=== PATIENT | male | born 1965 | race Caucasian/White ===

== ENCOUNTER 2024-04-29 08:41 | Observation (INO) ==
--- NOTE | 2024-03-24 13:44 | PAT Medication Instructions ---
Medication Instructions Date of Service March 24, 2024 Home Medications ibuprofen 200 mg tablet 400 mg PO BID meloxicam 7.5 mg tablet 7.5 mg PO QAM vit [id number]-[id number]-[id number] 500 mg-50 mg-25 mg-40 mg tablet (Bioflex) 2 tab PO HS ASK your surgeon for instructions ibuprofen 200 mg tablet 400 mg PO BID meloxicam 7.5 mg tablet 7.5 mg PO QAM STOP taking 2 weeks before surgery (or as soon as possible if surgery is within 2 weeks) vit A-ywbthwg-xveluipeo-rutin-[id number] 500 mg-50 mg-25 mg-40 mg tablet (Bioflex) 2 tab PO HS Other Notes NOTHING TO EAT OR DRINK AFTER MIDNIGHT If you have any questions please call us at [phone] or [phone] or [phone] or [phone]
--- NOTE | 2024-04-01 09:10 | Anesthesiology Consultation ---
Date of Service April 01, 2024 Assessment & Plan (1) Encounter for pre-operative examination: - Infectious disease screening: Per assessment on 04/01/24: No known recent infectious disease contacts or current infectious disease symptoms. - Outpatient joint assessment: Pt currently scheduled for inpatient pathway. If surgeon requests review for outpatient joint pathway, patient is an acceptable candidate for outpatient joint program from anesthesia standpoint pending surgeon's office assessment that patient is motivated, has good support and completes [facility] preop requirements. Chart Review Chart Review: Acceptable Risk for Surgery and Patient seen in Pre Admission Testing Teaching & Discussion Pre-Anesthesia Teaching/Discussion Notes: Instructed NPO after midnight before surgery,except medications with 15 cc of water. Medication instructions provided according to the PAT guidelines. History Surgery Operation Date: 04/29/24 07:15 Proposed Procedures p Left Total Knee Arthroplasty - Jorden Lizama MD Height/Weight Height: 6 ft Weight: 105 kg Allergies Allergy/AdvReac Type Severity Reaction Status Date / Time No Known Allergies Allergy Verified 03/23/24 11:47 Medications Home Medications Medication Instructions Recorded Confirmed Last Taken ibuprofen 200 mg tablet 400 mg PO BID 03/23/24 03/23/24 Unknown meloxicam 7.5 mg tablet 7.5 mg PO QAM 03/23/24 03/23/24 Unknown vit 2 tab PO HS 03/23/24 03/23/24 Unknown K-ttyygeg-[id number]-[id number] 500 mg-50 mg-25 mg-40 mg tablet (Bioflex) Past Medical History Medical History History of COVID-2020- mild symptoms > resolved Osteoarthritis Exercise / Class Metabolic Activity II 4-5 Yardwork/Stairs/Walk up hill (one FS: No CP, no SOB) Past Family History Family History Other No family history of adverse response to anesthesia Past Surgical History Surgical History History of arthroscopy of left knee History of arthroscopy of right knee History of left inguinal hernia repair History of right inguinal hernia repair History of tooth extraction History of umbilical hernia repair Past Anesthesia History No Hx of Anesthesia Complications and No Family Hx of Anesthesia Complications History of PONV No Hx of PONV Social History Smoking Status: Current some day smoker tobacco type: cigars Smoking cigarettes per day: Smokes cigars daily (advised on policy) Do You Dip or Chew Tobacco: No Hx Alcohol Use: No Hx Substance Use: No substance use type: does not use Review of Systems Patient denies chest pain, shortness of breath, dyspnea on exertion, fever, chills, cough, wheezing, palpitations. Physical Exam Vital Signs BP 158/83 P 63 TEMP 97.7 SP02 99%RA RESP 16 Physical Full cervical extension range of motion. Full TMJ range of motion. TMD > 3.5 finger breaths Mallampati Score I Dentition: intact, + caps Lungs: clear throughout to auscultation Cardiac: regular rate and rhythm, no murmurs noted Spine: normal Carotid arteries: negative bruit Extremities: no LE edema Trimmed cuevas Lab Results Anesthesia Preop Results Results Anesthesia Widget: WBC 7.07 K/ul (4.8-10.8) 04/01/24 Hgb 15.8 g/dl (14.0-18.0) 04/01/24 Hct 46.6 % (42.0-52.0) 04/01/24 Plt 192 K/uL (130-400) 04/01/24 Na 137 mmol/L (136-145) 04/01/24 K 5.0 mmol/L (3.5-5.1) 04/01/24 Cl 103 mmol/L (98-107) 04/01/24 CO2 28 mmol/L (21-32) 04/01/24 BUN 18 mg/dl (6-23) 04/01/24 Creat 1.11 mg/dl (0.6-1.4) 04/01/24 Glucose Level 102 mg/dl (70-99(Fasting)) H 04/01/24 PT 10.3 Seconds (9.0-12.0) 04/01/24 PTT 27 Seconds (21-31) 04/01/24 INR 0.9 (0.9-1.1) 04/01/24 Urine Color Yellow 04/01/24 Urine Appearance Clear (Clear) 04/01/24 Urine pH 5.5 (4.5-7.5) 04/01/24 Urine Specific [place] 1.007 (1.000-1.030) 04/01/24 Urine Protein Negative (Negative) 04/01/24 Urine Glucose (UA) Negative (Negative) 04/01/24 Urine Ketones Negative (Negative) 04/01/24 Urine Blood Negative (Negative) 04/01/24 Urine Nitrite Negative (Negative) 04/01/24 Urine Bilirubin Negative (Negative) 04/01/24 Urine Urobilinogen Negative (Negative) 04/01/24 Urine Leukocyte Esterase Negative (Negative) 04/01/24 Blood Type B Positive 04/01/24 Antibody Screen NEGATIVE 04/01/24 Testing Electrocardiogram Date: 04/01/24 NSR at 61bpm. "Normal ECG" Chest X-Ray Date: 04/01/24 FINDINGS: No lines and tubes are seen. The cardiomediastinal silhouette is normal. The lungs are clear. No evidence of pleural effusion or pneumothorax. IMPRESSION: No acute chest disease.
--- NOTE | 2024-04-27 20:19 | History & Physical Report ---
Date of Service April 27, 2024 Assessment & Plan (1) Osteoarthritis of left knee: Plan: Left knee osteoarthritis with history of arthroscopic knee meniscus surgery in the past. Similar meniscus surgery on his right knee but the right knee is not as arthritic as his left. He has failed injections including Visco supplement injection. Patient wants to proceed with left knee replacement at this time. Osteoarthritis type: primary Qualified Code(s): M17.12 - Unilateral primary osteoarthritis, left knee History of Present Illness Primary Care Provider: NO PCP Patient denies headaches, sweats, fevers, chills, double vision, blurred vision, cough, sore throat, dysphagia, chest pain, sob, wheezing, n/v/d/c, numbness, tingling, fatigue, urinary symptoms, mood disorders. ROS positive for arthritic symptoms. Allergies Allergy/AdvReac Type Severity Reaction Status Date / Time No Known Allergies Allergy Verified 03/23/24 11:47 Home Medications Medication Instructions Recorded Confirmed Type ibuprofen 200 mg tablet 400 mg PO BID 03/23/24 03/23/24 History meloxicam 7.5 mg tablet 7.5 mg PO QAM 03/23/24 03/23/24 History vit 2 tab PO HS 03/23/24 03/23/24 History J-zoqssdk-tmtssygqx-rutin-[id number] 500 mg-50 mg-25 mg-40 mg tablet (Bioflex) Past Med/Surg History Problem List (Updated 04/27/24 @ 20:18 by Jorden Lizama MD) Osteoarthritis of left knee Medical History History of COVID-19 2020- mild symptoms > resolved Osteoarthritis Surgical History History of arthroscopy of left knee History of arthroscopy of right knee History of left inguinal hernia repair History of right inguinal hernia repair History of tooth extraction History of umbilical hernia repair Family History Other No family history of adverse response to anesthesia Social History Smoking Status: Current some day smoker Tobacco Type: Cigars Cigarettes Per Day: Smokes cigars daily (advised on policy); Second Hand Exposure: No; Do You Dip or Chew Tobacco: No; Tobacco Cessation Education Requested by Patient: No Hx Alcohol Use: No Hx Substance Use: No Preferred Language: Occitan Communication Ability: Effective Ingot Supervisor Required: No Beliefs That Will Affect Care: None Current Living Situation: Spouse Other Information That Helps Us Care for You: No Feels Safe at Home: Yes Safety Concerns: Feels Safe At This Time Assistive Devices: Glasses Review of Systems All systems reviewed & are unremarkable except as noted in HPI & below Physical Exam Constitutional: WD/WN, vitals as above Respiratory: normal respiratory effort; no respiratory distress Cardiovascular: Rate/Rhythm: regular rate and regular rhythm Musculoskeletal: Left knee exam demonstrates a varus knee there is mild effusion has 0 through 125 degrees of range of motion. No instability. Pain with range of motion and weightbearing pain. Also has arthritic condition right knee with a little bit better motion in his right knee and his left but has a varus knee on his right as well. Neurocirculatory exam intact Skin: no rashes, warm and dry Neurologic: normal touch/pain/proprioception Psychiatric: A+Ox3, euthymic affect Results & Data Diagnostic Findings Standing weightbearing films demonstrate wpfj-gv-petu medial compartment left knee is moderate arthritic changes in his right knee not igjo-[id number]-uywl. Right knee has more patellofemoral arthritis in his left both patellas are centrally aligned more joint space narrowing on the right than the left but does have arthritic changes patellofemoral joint on the left.
[~2024-04-29 08:41] MED LIST: MIDAZOLAM HCL 1 MG/ML 2ML VIAL ONE; ROPIVACAINE 0.5% 5 MG/ML 30 ML VIAL ONE; fentaNYL citrate PF 100 MCG/2 ML VIAL ONE
--- NOTE | 2024-04-29 08:53 | History & Physical Bridge Note ---
Date of Service April 29, 2024 History & Physical Bridge Note I have examined the patient, reviewed the History & Physical and in the interval since the performance of the History & Physical I have noted the following changes of clinical significance: no changes noted
[2024-04-29] MEDS: LR 500ML BOLUS, THEN 15ML/HR IV SCH (09:39)
[2024-04-29] MEDS ORDERED: ePHEDrine sulfate 50 MG/ML AMP IV PRN (09:41)
[2024-04-29] MEDS ORDERED: ONDANSETRON INJ 2 MG/ML 2 ML VIAL IV PRN ×2 (09:41→15:24)
[2024-04-29] MEDS ORDERED: ATROPINE SULFATE 0.1 MG/ML 10ML SYR IV PRN (09:41)
[2024-04-29] MEDS ORDERED: fentaNYL citrate PF 100 MCG/2 ML VIAL IV PRN (09:41)
[2024-04-29] MEDS ORDERED: HYDROmorphone INJ 1 MG/ML SYRINGE IV PRN (09:41)
[2024-04-29] MEDS: FAMOTIDINE 20 MG TAB PO SCH (09:51)
[2024-04-29] MEDS: ACETAMINOPHEN 500 MG TAB PO SCH ×2 (09:51→22:30)
[2024-04-29] MEDS: GABAPENTIN 600 MG DOSE PO SCH (09:51)
[2024-04-29] MEDS: LR 60ML/HR IV SCH (09:52)
[2024-04-29] MEDS: dexAMETHasone**PF** 10 MG/ML VIAL IV SCH (09:52)
[2024-04-29] MEDS: CeleBREX 200 MG CAP PO SCH (09:52)
[2024-04-29] MEDS: METOCLOPRAMIDE HCL 10 MG TABLET PO SCH (09:52)
[2024-04-29] MEDS: TRANEXAMIC ACID 1,000 MG **IV Pre-op IV SCH (11:18)
[2024-04-29] MEDS ORDERED: MIDAZOLAM HCL 1 MG/ML 2ML VIAL ONE (11:19)
[2024-04-29] MEDS: ceFAZolin 2000MG 2,000 MG/15 ML SYR IV SCH ×2 (11:32→20:24)
[2024-04-29] MEDS: ORTHO JOINT ANESTHETIC ONE (12:47)
[2024-04-29] MEDS ORDERED: PROPOFOL IV EMULSION 10 MG/ML 20 ML VIAL IV ONE (13:19)
[2024-04-29] MEDS: TRANEXAMIC ACID 1,000 MG **IV Intra-op IV SCH (13:30)
[2024-04-29] MEDS: ROPIVACAINE 0.5% HCL/PF 246 MG, Ketorolac (*for OR use only*) 30 MG in SODIUM CHLORIDE ... INFIL SCH (13:34)
--- NOTE | 2024-04-29 13:37 | Operative Report ---
Post Operative Report Pre & Post Diagnosis Operation Date: 04/29/24 11:00 Pre-Op Diagnosis: Osteoarthritis knee left. Post-Op Diagnosis: Osteoarthritis knee left. I identified the patient and participated in the time-out.: Yes Procedure Operation Date: 04/29/24 11:00 Actual Procedures p Left Total Knee Arthroplasty(Left) - Jorden Lizama MD Surgeon Jorden Lizama MD Sales Developer Parveen HARTMAN Estimated Blood Loss 5 Findings Consistent with Post-Op Diagnosis Specimens Bone cuts Drains 2 Hemovac Anesthesia Type MAC Spinal Regional Complications none Disposition Disposition: Recovery Room Indications 59-year-old male with chronic left knee pain failed conservative management. He had progressive arthritis now cytm-br-bmft medial compartment and moderately [place] patellofemoral osteoarthritis as well. Patient has a varus knee. Description of Procedure Patient was taken to the operating room placed supine on the operating table and anesthetized under spinal MAC regional block anesthesia. Exam under anesthesia demonstrated 5 through 125 degrees range of motion no instability small effusion. A pneumatic tourniquet was placed about the thigh of the left lower extremity. The left lower extremity was prepped and draped in usual sterile fashion. The leg was elevated exsanguinated with an Esmarch bandage and the pneumatic tourniquet was raised to 300 mm mercury. An anterior incision was made across the left knee. The skin was incised longitudinally subcutaneous flaps were elevated and an incision was made through the medial retinaculum extending up into the mid third of the quadriceps tendon and extended down to the medial tibial tubercle. 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 There was a loose body embedded into the ACL tissue. The knee was exposed by excising the infrapatellar fat pad, excising the meniscal remnants and anterior cruciate ligament along with the loose body and the PCL. Any inflamed synovial tissue was resected. The fat pad over the anterior femur was resected for placement of the component in that area. The lateral synovial bands were release. The femur was exposed. The custom femoral cutting block was pinned in position. The distal femoral cutting block was applied. The distal femoral cut was made with the oscillating saw. The bone quality was very hard. The size 11, 4-in-1 cutting block was placed. The anterior and posterior chamfer cuts were made. The knee was extended and a subperiosteal peel lateral release was performed around the patella. The patella width was measured and width was reproduced using freehand cut technique. The 35 millimeter symmetrical patella was used. 3 drill holes are made for the pegs. The tibia was exposed. A custom tibial cutting block was positioned and drill holes were made for the cutting guide. Cutting guide was placed and the proximal cut was made with the oscillating saw. All osteophytes were resected. The lamina senior policy associate was used to assess ligamentous balance and the ligaments were balanced in extension and flexion. Medial and posterior medial releases including some minor pie crusting of the anterior MCL were required. The tibia was reexposed and measured for a size G tibial component. This was externally rotated in line with the tibial tubercle and the fixation pins were drilled. The proximal tibia was fashioned with the drill and punch. The size 11 femoral trial was inserted. The notch cutting devices were used. The trial cps inserts were used. The 12 mm insert gave balanced ligaments through full range of motion. The patella tracked centrally. the trials were removed. The orthomix anesthetic cocktail was injected per protocol. The knee was then copiously irrigated with pulsatile lavage saline solution. The final components were cemented with Refobacin bone cement. The final components were Caren persona size left standard posterior stabilized femoral component, left G tibial component with a 12 mm left CPS tibial polyethylene component with a 35 mm symmetrical polyethylene patella. After the cement cured with the knee in full extension the Betadine soak was used per protocol. The knee joint was copiously irrigated with pulsatile lavage saline solution . 2 drains were brought out laterally and connected to a Hemovac. The quadriceps tendon and medial retinaculum were closed with #2 FiberWire sutures at the superior pole patella distal quad tendon medial retinacular portion of the repair in 2 other sutures along the medial retinaculum and 1 at the junction of the medial retinaculum at the level of the tibial polyethylene and 1 at the apex of the quadriceps tendon incision proximally. After the extensor mechanism was reapproximated with those sutures and oh strata fix suture barbed running locking suture was placed from the superior apex of the quadriceps tendon incision down to the inferior pole the patella further repairing the quad tendon and medial retinaculum. The distal medial retinaculum was closed up to [id number] #0 Vicryl sutures. The knee was taken through a full range of motion which was 0 through 130 degrees and the repair was secure. The subcutaneous tissues were closed with 2-0 Vicryl sutures and skin was closed with surgical dorothy.A Silverlon dressing was applied and the patient tolerated the procedure well. Parveen HARTMAN my physician assistant finance director participated as assistant at surgery and was an integral part in all aspects of the procedure ,he assisted in soft tissue retraction, instrument management ,leg positioning, the closure, and will participate in the postoperative care of the patient. I attest to the content of the Intraoperative Record and any orders documented therein. Any exceptions are noted below.
--- NOTE | 2024-04-29 14:58 | Anesthesiology Progress Note ---
Date of Service April 29, 2024 Anesthesia Post Procedure Vital Signs Vital Signs: Temp Pulse Pulse Resp BP Pulse Ox O2 Del Method 04/29/24 14:50 36.5 C 74 20 147/90 H 97 Room Air 04/29/24 14:40 68 19 140/77 98 Room Air 04/29/24 14:30 73 18 116/85 94 Room Air 04/29/24 14:20 79 15 128/85 96 Room Air 04/29/24 14:10 84 18 127/91 92 Room Air 04/29/24 14:03 36.0 C L 91 H 12 137/94 95 Room Air 04/29/24 09:14 36.5 C 72 20 152/94 H 98 Room Air Transfer of Care Handoff Completed per policy Notes Mental Status: alert / awake / arousable and participated in evaluation Patient Amnestic to Procedure: Yes Nausea / Vomiting: adequately controlled Pain: adequately controlled Airway Patency, RR, SpO2: stable & adequate BP & HR: stable & adequate Hydration State: stable & adequate Anesthetic Complications: no major complications apparent and Pt Satisfied with anesthetic care
[2024-04-29] MEDS ORDERED: METOCLOPRAMIDE HCL INJ 5 MG/ML 2 ML VIAL IV PRN (15:24)
[2024-04-29] MEDS ORDERED: MAGNESIUM HYDROXIDE SUSP 30 ML UDC PO PRN (15:24)
[2024-04-29] MEDS ORDERED: diphenhydrAMINE Capsule 25 MG CAP PO PRN (15:24)
[2024-04-29] MEDS ORDERED: NALOXONE HCL 0.4 MG/1 ML VIAL/CARP IV PRN (15:24)
[2024-04-29] MEDS ORDERED: ALUMINUM/MAGNESIUM SUSP 30 ML UDC PO PRN (15:24)
[2024-04-29] MEDS ORDERED: HYDROmorphone INJ 0.5 MG/0.5 ML SYR IV PRN (15:24)
[2024-04-29] MEDS ORDERED: bisacodyL 10 MG SUPP PR PRN (15:24)
[2024-04-29] MEDS: SODIUM CHLORIDE 0.9% 1,000 ML IV SCH (15:28)
--- NOTE | 2024-04-29 16:24 | XRay Report ---
TWO VIEWS LEFT KNEE CLINICAL HISTORY: Postoperative examination. FINDINGS: AP and crosstable lateral portable views of the left knee are obtained. A left knee arthrop lasty is in near anatomic alignment. There has been undersurface remodeling of the patella. No acute fracture is seen. There are expected postoperative changes around the knee including skin clips, a stratton rgical drain, soft tissue edema, and subcutaneous gas. IMPRESSION: Expected postoperative changes status post left knee arthroplasty. No acute fracture is s een. ACT 112: Negative or not required by law. Electronically signed by: Sandeep López M.D. 04/29/2024 4:23 PM
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
[2024-04-29] MEDS: oxyCODONE HCL IR 5 MG TAB (IMMEDIATE RELEASE) PO PRN (17:33)
[2024-04-29 18:13] VITALS: RESP 16
[2024-04-29] MEDS: KETOROLAC TROMETHAMINE 15 MG/ML VIAL IV PRN (20:24)
[2024-04-29] MEDS: TRANEXAMIC ACID / 0.7% NACL 1,000 MG/100 ML BAG IV SCH (20:27)
[2024-04-29] MEDS: SENNA 8.6 MG TAB PO SCH (20:27)
[2024-04-29] MEDS: DOCUSATE SODIUM 100 MG CAP PO SCH (20:27)
[2024-04-29] MEDS: ASPIRIN 81 MG ECTAB PO SCH (20:27)
[2024-04-29] MEDS ORDERED: NON-FORMULARY MEDICATION (Vit C-Bioflav-Hesp-Rutin-Hb196 [Bioflex] 500-50-25-40 mg Tablet) PO SCH (21:00)
[2024-04-30 06:29] LABS: Hematocrit (blood only) 41.6 % (42.0-52.0); Hemoglobin 14.1 g/dl (14.0-18.0); Mean Corpuscular Hemoglobin 29.3 pg (25.0-34.0); Mean Corpuscular Hgb Conc 33.9 g/dL (32.0-36.0); Mean Corpuscular Volume 86.5 fL (80.0-100.0); Mean Platelet Volume 9.4 fL (9.4-12.4); Platelet Count 207 K/uL (130-400); RDW Coefficient of Variation 12.8 % (11.5-14.5); RDW Standard Deviation 40.3 fL (36.4-46.3); Red Blood Count 4.81 M/uL (4.70-6.10); White Blood Count 17.18 K/ul (4.8-10.8)
[2024-04-30 06:43] LABS: BUN Creatinine Ratio 20.9 (10-20); Calcium 8.8 mg/dl (8.6-10.3); Chol HDL Ratio 5.6 (0-5); Creatinine Clr Calc Pharmacy 86.1 ml/min; Est GFR (African American) 80.3 ml/min; Est GFR (Non-African American) 69.3 ml/min; Potassium 4.1 mmol/L (3.5-5.1)
[2024-04-30 07:26] VITALS: BP 158/91; PULSE 76; TEMP 98.6; O2SAT 99
--- NOTE | 2024-04-30 07:48 | Hospitalist Progress Note ---
Date of Service April 30, 2024 Assessment & Plan (1) Osteoarthritis of left knee: Plan: s/p Left Total Knee Arthroplasty(Left) - Jorden Lizama MD EBL 5cc Post op management with IVF, pain control, PT/OT per primary service DVT prophylaxis planned with ASA 81mg BID to start tonight Message to CM to f/u about HH therapy at dc as patient reporting arranged 05/04 but should be for Saturday. CM to f/u in AM. 04/30 WBC elevation suspected 2nd to surgery/steroid (got dexamethasone 10mg pre-op). Has been afebrile Hgb 15.8--> 14.1. Acute blood loss from surgery as well as some dilutional aspect from IVF suspected. VSS, 99% on RA. Drain output/management per primary service -- plans on keeping in place/having removed tomorrow with HH/OPPT to be ensured in place by CM prior to dc. Hopeful for HH however not unrealistic and reporting likely no call back from them/wishes to be notified after dc if HH able to be arranged but otherwise will be planning to have outpatient PT. off and TEE going to be off/staying to assist. Educated on lipid panel/outpt follow up and statin therapy in future expected/recommended Hospitalist service will sign off at this time. Please call with any questions/concerns. (2) Aortic stenosis: Plan: noted murmur on pre-op clearance and ECHO obtained w/ mild LVH, bicuspid aortic valve with mild stenosis/regurgitation. PCP had reached out to Cardiology at [facility] who felt did not need pre-op cardiac clearance as was able to complete greater than 4 METS and essentially asymptomatic with relatively mild echo findings HOWEVER was encouraged to have cardiology follow up following procedure given bicuspid aortic valve Of note, brother w/ bicuspid aortic valve and had recent replacement. Volume status acceptable Planning for cardiology f/u at discharge already in place per PCP note/patient (3) Tobacco use: Plan: cigars no need for nicotine patch while inpatient tobacco cessation encouraged. patient plans to quit. (4) HLD (hyperlipidemia): Plan: hx of such but does not appear to be on medications. lipid panel w/ am labs and outpt f/u (also for aortic stenosis as below) Lipid panel w/ TRG 151, Chol 207, LDL 140 Rec weight loss/dietary changes but also likely benefit from starting low dose statin in follow up with primary care . Did put values in discharge instructions as discussed with patient and at bedside for outpatient follow up and recs for statin therapy Plan Thank you for allowing hospitalist service to participate in the care of Mr Shepard. Hospitalist service will sign off at this time. Please call with any questions/concerns. Admission and Anticipated Discharge Date Admission Date: April 29, 2024 Supervising Physician Co-Signing Physician Notes The patient was not seen by me. The chart was reviewed. Case discussed with DEVAN Smith. Agree with assessment and plan Subjective Evaluated this morning, sitting up at the side of the bed, in room, awaiting discharge. Drain to remain in place, to remove tomorrow. Working to see if able to arrange HHPT but if not, OPPT in place. CM notified and can call after dc if able to arrange as patient reports Sual not the best at returning calls but did take off tomorrow to ensure able to get to appointment/drain out. CM to follow up. Pain controlled, passing gas. Encouraged bowel regimen at dc. reports having miralax at home. Also discussed cholesterol levels/lipid panel and on instructions to have follow up with primary/cards and likely benefit from starting statin therapy. No fever/chills, chest pain, shortness of breath, abd pain, nausea/vomiting. Feeling well, wanting to go when paperwork ready/CM follow up completed. Questions/concerns addressed at this time. Physical Exam Physical Exam: General: 59yo male sitting up at side of the bed, NAD, dressed HEENT: head atraumatic, normocephalic, mmm, trachea midline Resp: even/unlabored, no w/c/r, on room air 98% CV: RRR, +systolic murmur (3/6), best heard RUSB, no pitting edema/calf tenderness, pulses present GI: +BS, soft/NT : no luajn MSK/Neuro: dressing to LEFT knee c/d/i, drain w/ serosanginous output, toes mobile, pulses present, calves nontender, dorsiflexion/plantar flexion intact following commands, speech clear, no facial droop Psych: AOx3, cooperative and pleasant with exam Results & Data Results & Data Vital Signs (Past 12 Hours) Vital Signs Temp Pulse Resp BP Pulse Ox O2 Del Method 04/30/24 07:25 37.0 C 76 16 158/91 H 99 Room Air 04/30/24 05:49 36.6 C 74 16 131/83 100 Room Air 04/30/24 02:00 36.6 C 62 16 119/74 96 Room Air 04/29/24 22:00 37.0 C 95 H 16 123/75 95 Room Air Laboratory Results 04/30/24 Range/Units 06:02 WBC 17.18 H (4.8-10.8) K/ul RBC 4.81 (4.70-6.10) M/uL Hgb 14.1 (14.0-18.0) g/dl Hct 41.6 L (42.0-52.0) % MCV 86.5 (80.0-100.0) fL MCH 29.3 (25.0-34.0) pg MCHC 33.9 (32.0-36.0) g/dL RDW Std Deviation 40.3 (36.4-46.3) fL RDW Coeff of Willy 12.8 (11.5-14.5) % Plt Count 207 (130-400) K/uL MPV 9.4 (9.4-12.4) fL Sodium 137 (136-145) mmol/L Potassium 4.1 (3.5-5.1) mmol/L Chloride 103 (98-107) mmol/L Carbon Dioxide 28 (21-32) mmol/L Anion Gap 6 (3-11) BUN 24 H (6-23) mg/dl Creatinine 1.15 (0.6-1.4) mg/dl Est Cr Clr Drug Dosing 86.1 ml/min Est GFR ( Amer) 80.3 ml/min Est GFR (Non-Af Amer) 69.3 ml/min BUN/Creatinine Ratio 20.9 H (10-20) Glucose 126 H (70-99(Fasting)) mg/dl Calcium 8.8 (8.6-10.3) mg/dl Triglycerides 151 H (0-150) mg/dl Cholesterol 207 H (0-200) mg/dl LDL Cholesterol, Calc 140 mg/dl VLDL Cholesterol, Calc 30 (0-30) mg/dl HDL Cholesterol 37 mg/dl Cholesterol/HDL Ratio 5.6 H (0-5) Diagnostic Findings Knee X-Ray 04/29/24 14:16 TWO VIEWS LEFT KNEE CLINICAL HISTORY: Postoperative examination. FINDINGS: AP and crosstable lateral portable views of the left knee are obtained. A left knee arthroplasty is in near anatomic alignment. There has been undersurface remodeling of the patella. No acute fracture is seen. There are expected postoperative changes around the knee including skin clips, a surgical drain, soft tissue edema, and subcutaneous gas. IMPRESSION: Expected postoperative changes status post left knee arthroplasty. No acute fracture is seen. ACT 112: Negative or not required by law. Electronically signed by: Sandeep López M.D. 04/29/2024 4:23 PM PG Care Time/CCT Total # of Minutes Spent Total Time Spent with Patient: Total time spent is greater than 50% in coordination of care (as documented) at patient's floor/unit and/or counseling patient: Coding Level of Care Code 87527 SUB INP/OBS CARE 2/35MIN Diagnoses Primary osteoarthritis of left knee M17.12 Osteoarthritis type: primary Aortic stenosis I35.0 Tobacco use Z72.0 HLD (hyperlipidemia) E78.5 (1) Osteoarthritis of left knee Osteoarthritis type: primary Qualified Code(s): M17.12 - Unilateral primary osteoarthritis, left knee
--- NOTE | 2024-04-30 08:04 | Orthopedic Progress Note ---
Date of Service April 30, 2024 Assessment & Plan (1) Osteoarthritis of left knee: Plan: Left knee osteoarthritis with history of arthroscopic knee meniscus surgery in the past. Similar meniscus surgery on his right knee but the right knee is not as arthritic as his left. He has failed injections including Visco supplement injection. Patient wants to proceed with left knee replacement at this time. Postop day 1 post left knee replacement. Patient doing well. 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 Dressing change can be performed tomorrow. Patient has a superficial wound VAC. Patient has outpatient PT set up and will follow-up in 2 weeks for staple removal. Admission and Anticipated Discharge Date Admission Date: April 29, 2024 Subjective Feels great no complaints no significant pain Physical Exam Musculoskeletal: Left knee 0 to 90 degrees range of motion no extensor lag. Normal circulation sensorimotor exam. Results & Data Vital Signs (Past 12 Hours) Vital Signs Temp Pulse Resp BP Pulse Ox O2 Del Method 04/30/24 07:25 37.0 C 76 16 158/91 H 99 Room Air 04/30/24 05:49 36.6 C 74 16 131/83 100 Room Air 04/30/24 02:00 36.6 C 62 16 119/74 96 Room Air 04/29/24 22:00 37.0 C 95 H 16 123/75 95 Room Air Laboratory Results H&H 14 and 41.6 BUN 24 creatinine 1.15 (1) Osteoarthritis of left knee Osteoarthritis type: primary Qualified Code(s): M17.12 - Unilateral primary osteoarthritis, left knee
[2024-04-30] MEDS: MULTIVITAMIN TAB PO SCH (08:13)
[2024-04-30] MEDS ORDERED: CeleBREX 200 MG CAP PO SCH (21:00)
--- NOTE | 2024-05-06 12:12 | Discharge Summary ---
Date of Service May 06, 2024 Admission HPI Per Admitting Provider Patient denies headaches, sweats, fevers, chills, double vision, blurred vision, cough, sore throat, dysphagia, chest pain, sob, wheezing, n/v/d/c, numbness, tingling, fatigue, urinary symptoms, mood disorders. ROS positive for arthritic symptoms. Principal Diagnosis left knee osteoarthritis Discharge Data Allergies Allergy/AdvReac Type Severity Reaction Status Date / Time No Known Allergies Allergy Verified 04/29/24 09:07 Consultations 04/23/24 11:01 Consult Hospitalist Routine Procedures Performed Operation Date: 04/29/24 11:00 Actual Procedures p Left Total Knee Arthroplasty(Left) - Jorden Lizama MD Ordered Studies 04/29/24 05:00 US - OR guided needle placemen Routine Hospital Course (1) Osteoarthritis of left knee: Left knee osteoarthritis with history of arthroscopic knee meniscus surgery in the past. Similar meniscus surgery on his right knee but the right knee is not as arthritic as his left. He has failed injections including Visco supplement injection. Patient wants to proceed with left knee replacement at this time. Postop day 1 post left knee replacement. Patient doing well. 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 Dressing change can be performed tomorrow. Patient has a superficial wound VAC. Patient has outpatient PT set up and will follow-up in 2 weeks for staple removal. Total Time Total Time Spent Total Time Spent (In Minutes): 15 Discharge Plan Discharge Items Patient Disposition: Home - Home Health Services Reason For Visit: Osteoarthritis Knee Left Discharge Diagnosis: Left knee osteoarthritis Activity: Per Instructions section Non-emergency contact: Surgeon Call non-emergency contact if: your pain is not controlled, your pain is worsening and your temperature is above 101 Follow-up/Referrals: Annemarie Gill CRNP [Primary Care Provider] - Diet: Regular Addtl Attending Provider Instructions: ACTIVITY RECOMMENDATIONS: SELF CARE INSTRUCTIONS AFTER TOTAL KNEE REPLACEMENT A. You may need to continue a physical therapy program after discharge from the hospital. There are several options available to you. Your doctor will assist you in selecting the best one for you. 1. An out-patient facility 3 times a week for therapy. 2. Home therapy for 1 to 2 weeks with outpatient therapy to follow. 3. Continue working on all exercises taught by physical therapy three times a day for 20 minutes on non-therapy days. Your goals should be to increase the bending of your knee to 90 degrees and beyond and to fully straighten your knee. Ice and elevate knee after exercise. B. Weight as tolerated with a walker or as instructed by your physician. C. It is okay to shower if minimal to no drainage from incision. No Baths. Do not soak wound. D. Make walking a part of your daily routine. Be up as much as comfortable with rest periods throughout the day. Rest with leg elevation is very important. Use the ice wrap frequently for the first 3-4 weeks. E. There are no restrictions on activities. You may ride in a car, shop, participate in chief dispatcher and all social activities. F. Wear the long elastic stockings (DANIELE hose) 20 hours a day for one month after surgery. They can be removed several times a day for laundering and when showering. G. REENA dressing: You have a REENA dressing on your surgical wound. It will remain in place for 7 days from surgery. You will be provided with a booklet with the do's and don'ts with the dressing in place. After 7 days, the dressing may be removed. If there is drainage from the surgical incision, you may cover the wound with dry dressings H. You may remove the Hemovac drain tomorrow, 05/01/2024, at noon. There will be 7 holes in each tube of the drain. Please call the office if either of the tubes does not have 7 falls present. SPECIAL CARE INSTRUCTIONS: VERY IMPORTANT TO READ AND REVIEW A. Take Coumadin, Xarelto, Aspirin or Lovenox (blood thinning medications) as directed by your doctor. If on Coumadin, have a pro-time (blood test) drawn according to your doctor's instructions. This will tell the doctor how well the Coumadin is thinning your blood. B. There are a few signs you need to watch for after you are home. Call [facility] if you notice any of the followin. Increased severe knee pain. Some pain is expected especially when you exercise. 2. Increased swelling in your leg or knee; pain or swelling of the calf muscle in either lower leg. 3. Any redness or fluid drainage from the incision. 4. Shortness of breath or chest pain. 5. A Temperature of 101 degrees F or greater. C. Please call [facility] at if you have any concerns or questions about your operation or recovery. The doctor or his nurse will return your call promptly. D. You must take antibiotics before dental work, bladder, bowel or other surgery. Your doctor will provide you with a permanent care to carry describing this precaution. FOLLOW UP VISIT: If appointment is not already scheduled: Please call [facility] to make a follow-up appointment for 12-14 days after your surgery at . Addtl Product Marketing Intern Provider Instructions: Your lipid panel had elevated cholesterol and you are not on medications at this time but should be discussed with primary care/cardiology in follow up (as doing so for your bicuspid aortic valve). Cholesterol level was 207, LDL cholesterol 140, HDL 37. Triglycerides 151. Likely would benefit from starting cholesterol medication like atorvastatin or rosuvastatin in follow up at discharge. Pending Studies at Discharge: No Stand-Alone Forms: [facility], Smoking Cessation Medications and DC Order Prescriptions: New acetaminophen [Tylenol Extra Strength] 500 mg Tablet 1,000 mg PO Q8 Qty: 90 0RF aspirin 81 mg Tablet,Delayed Release (Dr/Ec) 81 mg PO BID Qty: 60 0RF celecoxib [Celebrex] 200 mg Capsule 200 mg PO BID Qty: 60 0RF oxycodone 5 mg Tablet 5 mg PO Q4H PRN (Reason: pain) Qty: 20 0RF cefadroxil 500 mg capsule 500 mg PO Q12H Qty: 28 0RF Continued Bioflex 852-10-08-40 mg Tablet 2 tab PO HS Discontinued ibuprofen 200 mg Tablet 400 mg PO BID meloxicam [Mobic] 7.5 mg Tablet 7.5 mg PO KIESHA Robles/Other Patient Handouts: Oxycodone Oral Tablet, Tips After Knee Surgery, Knee Replace Home Recovery Admission Data Admit Date/Time: 04/29/24 14:16 Attending Provider: Jorden Lizama Admit Provider: Jorden Lizama Primary Care Provider: Annemarie Gill Other Providers: Sourav Breaux Other Interventions: Discharge Summary Assessment (RN) Last Done: 04/30/24 09:40
== END 2024-04-30 11:27 | disposition home health service (06) ==
LOC: ASU 08:41 → 3E 08:41